=== PATIENT | female | born 1960 | race Caucasian/White ===

== ENCOUNTER 2018-02-26 07:57 | Day surgery (SDC) | payer BC ==
[~2018-02-26 07:57] MED LIST: Lactated Ringers 1,000 ML IV SCH; Sodium Chloride 0.9% 10 ML Syringe FLUSH PRN
[2018-02-26] MEDS ORDERED: Propofol 200 MG/20 ML SDV IV ONE (09:00)
[2018-02-26] MEDS ORDERED: Simethicone Drops 40 MG/0.6 ML 30 ML Bottle ONE (09:26)
--- NOTE | 2018-02-26 09:43 | PCM.OPNOTE ---
- General Post-Op/Procedure Note Date of Surgery/Procedure: 02/26/18 Operative Procedure(s): c scope Findings: normal exam Pre Op Diagnosis: family hx of colon polyps and cancer Post-Op Diagnosis: nl exam Anesthesia Technique: JANICE Primary Surgeon: Chele Betancourt Anesthesia Provider: Edenilson Briggs Pathology: none Complications: None Condition: Good Free Text/Narrative:: see dictation #[id number]
--- NOTE | 2018-02-26 09:58 | PREOP ---
ADMISSION DATE: 02/26/2018 CHIEF COMPLAINT: Colon cancer screening. HISTORY OF PRESENT ILLNESS: This 57-year-old white female referred for a followup colonoscopy. She has no complaints. Does have a family history of colon polyps with all her siblings having had polyps and father having colon cancer. Her last colonoscopy was 10 years ago. MEDICATIONS: 1. Lexapro 10 mg daily. 2. Lisinopril/hydrochlorothiazide 10/12.5 daily. 3. Minocycline 100 mg by mouth daily. 4. Baby aspirin 81 mg daily. 5. Calcium carbonate. 6. Diprosone cream. 7. Mobic on a p.r.n. basis. ALLERGIES: She has no known drug allergies. PAST MEDICAL HISTORY: Significant for contact dermatitis, breast lump. PAST SURGICAL HISTORY: Significant for left knee arthroscopy, breast biopsy, cystocele and rectocele repair, hysterectomy, wisdom teeth extraction, and tubal ligation. FAMILY HISTORY: As mentioned, father had colon cancer at the age of 63. There is also a history of stroke, heart disease, and hypothyroidism. Ovarian cancer in the mother. SOCIAL HISTORY: The patient is , has 2 children. Works as an [employer]. Does not smoke. Has an occasional drink. REVIEW OF SYSTEMS: Constitutional, HEENT, respiratory, cardiac, gastrointestinal, genitourinary were all negative. PHYSICAL EXAMINATION: VITAL SIGNS: Reviewed. She is stable and afebrile. HEENT: Grossly within normal limits. LUNGS: Clear to auscultation. HEART: Had a regular rate and rhythm. ABDOMEN: Soft and nontender. ASSESSMENT: 1. Screening for colon cancer. 2. Family history of colon cancer. PLAN: Colonoscopy. Procedure and risks explained to the patient to include bleeding, perforation, and infection. The patient expresses understanding and she asked us to proceed. /[id number] /MODL
--- NOTE | 2018-02-26 10:07 | OR ---
DATE OF OPERATION: 02/26/2018 SURGEON: Chele Betancourt MD PROCEDURE PERFORMED: Colonoscopy. PREOPERATIVE DIAGNOSIS: Need for screening colonoscopy, colon cancer screening, and family history of colon polyps and colon cancer. POSTOPERATIVE DIAGNOSIS: Normal exam. INDICATIONS FOR PROCEDURE: This is a 57-year-old white female who is referred for screening colonoscopy. She was offered and accepted same. She has a family history of colon polyps with her siblings and a history of colon cancer with her father. DESCRIPTION OF PROCEDURE: After an excellent IV sedation was administered, digital rectal exam was performed. No marked abnormality was noted. The flexible colonoscope was inserted and advanced to the cecum without difficulty. The prep was excellent. The following findings were noted. Ascending colon, unremarkable. Transverse colon, unremarkable. Descending colon, unremarkable. Sigmoid and rectum, unremarkable. Colon was deflated. The scope was removed. The patient tolerated procedure well, and was taken to recovery room in good condition. Repeat scope in 10 years. /[id number] /MODL
== END 2018-02-26 11:00 | disposition home or self-care (01) ==
LOC: FB.SDS 07:57
PROVIDERS: ATTEND Surgery
DX: Z12.11 Encounter for screening for malignant neoplasm of colon (principal); I10 Essential (primary) hypertension; E66.9 Obesity, unspecified; Z68.32 Body mass index [BMI] 32.0-32.9, adult; F33.42 Major depressive disorder, recurrent, in full remission; Z79.82 Long term (current) use of aspirin; Z79.899 Other long term (current) drug therapy; Z80.0 Family history of malignant neoplasm of digestive organs; Z83.71 Family history of colonic polyps
CPT/HCPCS: 45378; A9270; J2704; J7120